=== PATIENT | female | born 1955 | race Caucasian/White ===

== ENCOUNTER 2021-01-02 09:59 | Outpatient (CLI) | payer MEDICARE, BC | END 2021-01-02 23:59 | disposition home or self-care (01) | LOC: RAD 09:59 | PROVIDERS: ATTEND Family Medicine | DX: N39.0 Urinary tract infection, site not specified (principal); B96.4 Proteus (mirabilis) (morganii) as the cause of diseases classified elsewhere | CPT/HCPCS: 76857 ==